=== PATIENT | male | born 2000 | race Caucasian/White ===

== ENCOUNTER 2021-12-05 12:52 | Outpatient (CLI) | payer OTHER | END 2021-12-05 12:53 | disposition home or self-care (01) | LOC: NM 12:52 | PROVIDERS: ATTEND Internal Medicine Gastroenterology | DX: R10.11 Right upper quadrant pain (principal); K21.9 Gastro-esophageal reflux disease without esophagitis | CPT/HCPCS: 78227; A9537 ==